=== PATIENT | female | born 2000 | race Caucasian/White ===

== ENCOUNTER 2018-02-06 14:35 | Emergency (ER) | payer OTHER | END 2018-02-06 17:43 | disposition home or self-care (01) | LOC: FTE 14:35 | DX: M79.89 Other specified soft tissue disorders (principal); I89.0 Lymphedema, not elsewhere classified | CPT/HCPCS: 81025; 93971; 99284-25 ==

== ENCOUNTER 2018-08-05 22:57 | Emergency (ER) | payer OTHER ==
[2018-08-06] MEDS: DIPHENHYDRAMINE 50 MG INJ IV (00:17)
[2018-08-06] MEDS: METOCLOPRAMIDE 10 MG INJ IV (00:17)
== END 2018-08-06 01:59 | disposition home or self-care (01) ==
LOC: FTE 22:57
DX: R51 Headache (principal)
CPT/HCPCS: 70450; 96374; 96375; 99285-25